=== PATIENT | female | born 1985 | race Caucasian/White ===

== ENCOUNTER 2024-12-28 04:41 | Emergency (ER) | payer OTHER, SELFPAY ==
[2024-12-28 04:47] VITALS: BP 146/99
[2024-12-28 05:00] VITALS: BP 156/99
[2024-12-28 05:23] LABS: Hematocrit 43.2 % (37.0-47.0); Hemoglobin 14.5 g/dL (12.0-16.0); Mean Corp Hgb Conc. 33.6 g/dL (33.0-37.0); Mean Corpuscular Volume 81.7 fL (81.0-99.0); Nucleated Red Blood Cells % 0 %; Platelet Count 263 10^3/uL (130-400); Red Cell Dist. Width 13.2 % (11.5-14.5)
[2024-12-28] MEDS: MAALOX 30 PO (05:28)
[2024-12-28] MEDS: PROTONIX IV 40 MG IV (05:28)
[2024-12-28 05:34] LABS: HCG, Serum Qualitative Screen Negative
--- NOTE | 2024-12-28 05:34 | ED.GENMED ---
History of Present Illness
General
Chief Complaint: Chest Pain
Source: patient and spouse
Exam Limitations: none
Time Seen by Provider: 12/28/24 04:56
Nursing documentation reviewed up to this point in time: agreed with
History of Present Illness
History of Present Illness:
This is a 39-year-old female presents with complaints of intermittent chest pain described as 'waves' of epigastric to lower substernal chest discomfort lasting approximately 10 seconds and occurring every 10 minutes for the past 3 days. The onset
of the symptoms coincided with starting Lovenox therapy, 40 mg subcu daily. She is currently undergoing infertility treatments with the planned IVF procedure within the next few weeks. She did undergo egg retrieval's last year and thus far has had
2 failed IVF procedures thus, according to patient, her infertility specialists are concerned for potential blood clotting issue and along with low-dose aspirin recommended initiation of Lovenox prior to her next IVF procedure.
She has no prior history of blood clots, although the patient has a genetic predisposition due to a family history of blood clotting disorders�specifically her father.
Chest pain episodes seem worse at nighttime. She denies shortness of breath, no nausea and or syncope, no fever. She did note some tingling of her distal fingers and toes upon waking and admits to feeling quite anxious.
Current medications include levothyroxine for thyroid management related to IVF, low-dose aspirin, Plaquenil, tacrolimus, various supplements. All these medications were prescribed by her infertility specialists.
She has had no dyspnea, chest pain is not worse with certain activities but does seem worse with lying supine, it is not worse with inspiration. She has had no abdominal nor back pain. No leg pain or swelling. No recent travel.
No history of similar episodes in the past.
She checked her EKG on her Apple Watch and it appeared normal.
Past History
Past History
ED Past Medical History: Other (Insulin resistance, infertility) and Other (Obstructive sleep apnea, noncompliant with CPAP)
ED Past Surgical History: Gynecological (Hysterosalpingogram. Egg retrieval x 2)
Social History
Tobacco: Non-smoker
Alcohol: None
Drug: None
Personal:
Living: with family
Employment: Employed
Family History
Family History: Other (Thromboembolism in father)
Phy Exam
Physical Exam
Physical Exam:
GENERAL: 39-year-old female appears her stated age, awake and alert, pleasant, easily communicative and quite chatty, appears in no acute distress. is accompanying.
EYE: anicteric
NECK: Supple, nontender, no meningismus, no significant adenopathy.
ENT: oral mucosa is moist. No rhinorrhea.
CARDIAC: Regular rate and rhythm. no murmur. No rub. No palpable chest wall tenderness.
LUNGS: Clear breath sounds bilaterally, no acute respiratory distress, no wheezes/rales/rhonchi
ABDOMEN: Soft, nondistended, very minimal tenderness with deep palpation only to the epigastric region, no r/g, no cvat. normoactive BS.
NEUROLOGICAL: Alert and oriented x3, no focal neuro deficits. Gait is steady.
SKIN: Warm and dry, normal color, skin intact. No rash.
MUSCULOSKELETAL: No C/C/E. peripheral pulses are full and equal b/l. No palpable tenderness.
PSYCH: Normal and appropriate interaction.
Scores
Heart Score for Chest Pain Patients
STEMI patient?: No
History: Slightly or Non-Suspicious
ECG: Normal
Age: </= 45 years
Risk Factors: No Risk Factors
Troponin: </= Normal Limit
Heart Score for Chest Pain Patients: 0
Heart Score Risk: 2.5% MACE over next 6 weeks
Course
Orders/Labs/Results
Orders:
Orders
12/28/24 04:56
Electrocardiogram (*1) Urgent
Reason for Study: Other
Other Reason for Exam: Respiratory Distress
Cardiac Monitoring- Treatment ONCE
EKG- Treatment ONCE
IV Insert/Care/Rem.- Treatment PRN
Test Result ONCE
CR Chest - 2 Views Urgent
Comment:
Reason For Exam: respiratory distress
O2 Therapy [RESP] Urgent
Titrate/Wean O2 to maintain O2 sat greater than (%): 93
Special Instructions: TO MAINTAIN CONTINUOUS O2 SATS >/= 93%
Pulse Ox/cont/shift [RESP] Urgent
Quantity: 1
Special Instructions: continuous pulse ox
12/28/24 05:10
Complete Blood Count/With Diff Urgent
Comprehensive Metabolic Panel Urgent
HCG, Serum Qualitative Screen Urgent
Comment: .
Lipase Urgent
Comment: ADD ON
NT-proBNP Urgent
Troponin I Urgent
12/28/24 05:16
D-Dimer Urgent
12/28/24 05:17
Add On- LAB Urgent
Tests Added?: lipase
12/28/24 05:19
Mag Hydrox/Al Hydrox/Simeth [Maalox] 30 ml Phenobarb/Hyoscy/Atropine/Scop [] 10 ml Viscous Lidocaine 2% [Xylocaine Viscous Cup] 10 ml PO NOW
Pantoprazole [Protonix IV] 40 mg IV NOW STA
12/28/24 05:27
Mag Hydrox/Al Hydrox/Simeth [Maalox] 30 ml .ROUTE .STK-MED ONE
Phenobarb/Hyoscy/Atropine/Scop [] 10 ml .ROUTE .STK-MED ONE
Viscous Lidocaine 2% [Xylocaine Viscous Cup] 15 ml .ROUTE .STK-MED ONE
Abnormal Lab Results
12/28/24
05:10
WBC 11.6 H 10^3/uL
(4.8-10.8)
Abs Immat Gran (auto) 0.1 H 10^3/uL
(0-0.05)
Absolute Neuts (auto) 6.7 H 10^3/uL
(1.4-6.5)
Absolute Monos (auto) 0.8 H 10^3/uL
(0.1-0.6)
Glucose 106 H mg/dl
(70-99)
12/28/24 05:10
12/28/24 05:10
Vital Signs
Initial and Last Documented VS:
Initial Vital Signs
Temp Pulse Resp BP Pulse Ox
98.1 F 74 20 146/99 99
12/28/24 04:47 12/28/24 04:47 12/28/24 04:47 12/28/24 04:47 12/28/24 04:47
Last Documented Vital Signs
Temp Pulse Resp BP Pulse Ox
98.1 F 76 13 139/77 97
12/28/24 04:47 12/28/24 06:00 12/28/24 06:00 12/28/24 06:00 12/28/24 05:46
MDM/Problems Addressed
Differential Diagnosis Includes:
Differential diagnosis includes, in no particular order and not limited to:
ACS
PE
Costochondritis
GERD
Pericarditis
Musculoskeletal chest wall pain
Panic disorder
Hyperventilation
Aortic dissection
Adverse medication reaction
MDM/Problems Addressed:
Acute chest pain
Peripheral digital paresthesia
EKG is unremarkable, no evidence of STEMI nor coronary ischemia. No old EKG to compare.
Overall well in appearance. Hemodynamically stable
Thromboembolism is less likely especially as patient currently maintained on Lovenox and low-dose aspirin.
Will trial a GI cocktail and IV Protonix for potential GERD.
Labs are pending including troponin, D-dimer. If D-dimer elevated will plan for CT of the chest/PE study. If negative, will check chest x-ray.
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
Chronic conditions affecting care:
Infertility. Currently undergoing medical management for infertility and plan for IVF procedure in the near future.
*Radiology
Radiology exam reviewed: preliminary read by ED provider (Chest x-ray is unremarkable. Clear lung arch[place]. Normal heart size.)
*Pulse Oximetry
SaO2: 97
Oxygen Mode of Delivery: Room air
Patient hypoxic: no
*EKG
Interpreted by ED Provider?: Yes
Interpretation: normal
Comparison EKG: no comparison EKG present
Rate: normal
Rhythm: sinus
[place]: normal axis
Interval: normal interval
QRS Pattern: normal QRS
Ischemia: no ischemia
*Plumbing Installer Interpretation
Rate: normal
Interpretation: normal
Rhythm: sinus
*Critical Care Note
Total Time (30-74mins, 75-104mins- exclusive of procedures): Not Applicable
Update Note
Update Note:
06:30
Patient noted brief increase in lower substernal chest pain immediately after consuming GI cocktail but then chest pain has since completely resolved 10 minutes after GI cocktail and IV Protonix.
Labs are unremarkable including negative troponin, negative D-dimer.
Chest x-ray is unremarkable. Clear lung arch[place]ta. Normal heart size.
Highly suspect acute GERD/esophagitis as cause for chest pain and recommend bland diet, may take [id number] Pepcid versus antiacid as needed for chest pain.
Prompt follow-up with PCP return precautions discussed.
ED Attending Note
-
Portions of this chart may have been created with voice recognition software.� Occasional wrong word or��sound alike� substitutions may have occurred due to the inherent limitations of voice recognition software.
Discharge Plan
Departure
Patient Disposition: Home (Routine Discharge)
Date of Disposition: 12/28/24
Time of Disposition: 06:36
Patient with high blood pressure during this ER visit?: No
Condition: Good
Discharge Problem:
Acute GERD w esophagitis
Instructions: Acid Reflux and GERD in Adults (DC)
Referrals:
Chelle Lugo MD [Family Provider, [facility]] - Call in 1-3 days for appt
Interventions
Interventions:
*Risk Screen - Suicide Last Done: 12/28/24 04:47
*General Assessment Last Done: 12/28/24 04:47
*Neglect/Abuse Screening Last Done: 12/28/24 04:47
*ED- Fall Risk Assessment Last Done: 12/28/24 04:47
*ED COVID-19 Vaccine History Last Done: 12/28/24 04:47
*ED Influenza Vaccine History Last Done: 12/28/24 04:47
ED- Cardiac Assessment Last Done: 12/28/24 05:37
Discharge Date and Time
Print Language: TURKISH
[2024-12-28 05:41] LABS: ALT (SGPT) 20 U/L (0-35); AST (SGOT) 21 U/L (14-36); Albumin 4.8 g/dl (3.5-5.0); Alkaline Phosphatase 53 U/L (38-126); Blood Urea Nitrogen 17 mg/dl (7-17); Calcium 9.1 mg/dl (8.4-10.2); Carbon Dioxide 24 mmol/L (22-30); Chloride 104 mmol/L (98-107); Glucose 106 mg/dl (70-99); Lipase 110 U/L (23-300); Potassium 4.3 mmol/L (3.5-5.1); Sodium 138 mmol/L (135-145); Total Protein 7.4 g/dl (6.3-8.2); eGFR > 60.00
[2024-12-28 06:00] VITALS: BP 139/77
[2024-12-28 06:02] LABS: Troponin I < 0.012 ng/ml
[2024-12-28 06:07] LABS: D-Dimer < 0.27 ug/mlFEU (0.00-0.50)
== END 2024-12-28 06:47 | disposition home or self-care (01) ==
LOC: EMR 04:41
PROVIDERS: EMERGENCY PHYSICIAN Emergency Medicine; FAMILY PHYSICIAN Family Medicine
DX: K21.00 Gastro-esophageal reflux disease with esophagitis, without bleeding (principal); G47.33 Obstructive sleep apnea (adult) (pediatric); Z79.82 Long term (current) use of aspirin
CPT/HCPCS: 99285; 96374; 71046; 80053; 83690; 83880; 84484; 84703; 85025; 85379; 93005